=== PATIENT | female | born 1960 | race Caucasian/White ===

== ENCOUNTER 2017-03-11 09:19 | Emergency (ER) | payer SELFPAY ==
[2017-03-11 09:34] VITALS: RESP 18
--- NOTE | 2017-03-11 09:48 | ED PDOC ---
Arrival/HPI - General Historian: Patient - General Chief Complaint: Lower Extremity Problem/Injury Time Seen by Provider: 03/11/17 09:44 - History of Present Illness Narrative History of Present Illness (Text): 03/11/17 09:45 57yo female with the daughter in ED for right foot pain s/p trauma 3weeks ago. The daughter states she was wearing a high heel, when she slipped and twisted her foot 3weeks ago. States she applied ice but still having pain to the area. Did not take any medication for the pain. Denies any other complaint. (Gudelia Pierre A) Past Medical History - Provider Review Nursing Documentation Reviewed: Yes - Infectious Disease Hx of Infectious Diseases: None - Reproductive Menopause: Yes - Genitourinary/Gynecological Other/Comment: C SECTION - Psychiatric Hx Substance Use: No - Anesthesia Hx Anesthesia: No Hx Anesthesia Reactions: No Hx Malignant Hyperthermia: No Family/Social History - Physician Review Nursing Documentation Reviewed: Yes Family/Social History: Unknown Family HX Smoking Status: Never Smoked Hx Alcohol Use: No Hx Substance Use: No Allergies/Home Meds Allergies/Adverse Reactions: Allergies No Known Allergies Allergy (Verified 03/11/17 09:34) Review of Systems - Physician Review All systems were reviewed & negative as marked: Yes - Review of Systems Constitutional: Normal Eyes: Normal ENT: Normal Respiratory: Normal Cardiovascular: Normal Gastrointestinal: Normal Genitourinary Female: Normal Musculoskeletal: Arthralgias (Right foot pain) Skin: Normal Neurological: Normal Endocrine: Normal Hemo/Lymphatic: Normal Psychiatric: Normal Physical Exam Vital Signs Reviewed: Yes Temperature: Afebrile Blood Pressure: Normal Pulse: Regular Respiratory Rate: Normal Appearance: Positive for: Well-Appearing, Non-Toxic, Comfortable Pain Distress: None Mental Status: Positive for: Alert and Oriented X 3 - Systems Exam Head: Present: Atraumatic, Normocephalic Pupils: Present: PERRL Extroacular Muscles: Present: EOMI Conjunctiva: Present: Normal Mouth: Present: Moist Mucous Membranes Neck: Present: Normal Range of Motion Respiratory/Chest: Present: Clear to Auscultation, Good Air Exchange. No: Respiratory Distress, Accessory Muscle Use Cardiovascular: Present: Regular Rate and Rhythm, Normal S1, S2. No: Murmurs Abdomen: Present: Normal Bowel Sounds. No: Tenderness, Distention, Peritoneal Signs Back: Present: Normal Inspection Upper Extremity: Present: Normal Inspection. No: Cyanosis, Edema Lower Extremity: Present: NORMAL PULSES, Normal ROM, Tenderness (Dorsal mid right foot), Swelling (Dorsal mid right foot), Neurovascularly Intact, Capillary Refill < 2 s. No: Edema, Erythema, Deformity, Temperature Abnormalties Neurological: Present: GCS=15, CN II-XII Intact, Speech Normal Skin: Present: Warm, Dry, Normal Color. No: Rashes Psychiatric: Present: Alert, Oriented x 3, Normal Insight, Normal Concentration Vital Signs Temp Pulse Resp BP Pulse Ox 03/11/17 09:51 97.8 F 98 H 18 134/82 97 03/11/17 09:28 97.9 F 94 H 18 134/82 98 Medical Decision Making ED Course and Treatment: I was available for consultation during PA evaluation. The chart was reviewed by me, and I agree with disposition. The documented history was done by the physician engineering administrator. The documented physical exam was done by the physician engineering administrator. The documented procedures were done by the physician engineering administrator. (Sheldon Rangel) 03/11/17 10:26 Right foot xray - No acute fracture/dislocation noted Result was DW the pt. Ortho shoe given Referred to a Real Estate Investment Analyst (Gudelia Pierre) - RAD Interpretation Radiology Orders: 03/11/17 09:45 FOOT RIGHT 3 VIEWS ROUTINE [RAD] Stat - Medication Orders Current Medication Orders: Discontinued Medications Ibuprofen (Motrin Tab) 600 mg PO STAT STA Stop: 03/11/17 09:46 Last Admin: 03/11/17 10:03 Dose: 600 MG MAR Pain/Vitals Document 03/11/17 10:03 SE (Rec: 03/11/17 10:03 SE [id number]) Pain Reassessment Is This A Pain ReAssessment? No Sleep Is patient sleeping during reassessment? No Presence of Pain Presence of Pain Yes Disposition/Present on Arrival - Present on Arrival Any Indicators Present on Arrival: No History of DVT/PE: No History of Uncontrolled Diabetes: No Urinary Catheter: No History of Decub. Ulcer: No History Surgical Site Infection Following: None - Disposition Have Diagnosis and Disposition been Completed?: Yes Disposition Time: 10:30 Patient Plan: Discharge - Disposition Diagnosis: Foot pain Disposition: HOME/ ROUTINE Condition: STABLE Discharge Instructions (ExitCare): Arthralgia (ED) Additional Instructions: Follow up with a Real Estate Investment Analyst Return to ED for any new or worsening symptoms Prescriptions: Ibuprofen [Motrin Tab] 600 mg PO Q6 #20 tab Referrals: PCP,NO [Primary Care Provider] - Follow up with primary Tess Padilla DPM [Staff Provider] - Follow up with primary
[2017-03-11 09:53] VITALS: TEMP 97.8; O2SAT 97
[2017-03-11 10:47] VITALS: BP 132/79; PULSE 89
--- NOTE | 2017-03-11 11:07 | RAD ---
PROCEDURE: Right Foot Radiographs. HISTORY: foot pain s/p trauma COMPARISON: None. FINDINGS: BONES: Normal. No fracture. JOINTS: Normal. SOFT TISSUES: Normal. OTHER FINDINGS: None. IMPRESSION: Normal right foot radiographs.
== END 2017-03-11 10:52 | disposition home or self-care (01) ==
LOC: ED 09:19
DX: M79.671 Pain in right foot (principal)